=== PATIENT | male | born 1975 | race Caucasian/White ===

== ENCOUNTER 2024-02-11 20:29 | Inpatient (IN) | payer MEDICAID ==
[~2024-02-11] VITALS: Ht 182.9 cm; Wt 85.7 kg
[~2024-02-11 20:29] MED LIST: CEPH500C2 PO
[2024-02-11 20:37] VITALS: O2SAT 99
[2024-02-11 22:02] LABS: BASOPHILS % (AUTO) 0.4 % (0.0-2.0); EOSINOPHILS % (AUTO) 0.2 % (0.0-6.0); HEMATOCRIT 40 % (39-51); HEMOGLOBIN 13.1 g/dL (13.5-17.5); LYMPHOCYTES # (AUTO) 1.5 K/uL (0.8-4.8); LYMPHOCYTES % (AUTO) 11.9 % (20.0-44.0); MEAN CORPUSCULAR HEMOGLOBIN 29 PG (26.0-33.0); MEAN CORPUSCULAR HGB CONC 33 g/dl (31.0-36.0); MEAN CORPUSCULAR VOLUME 89 fL (80-96); MONOCYTES # (AUTO) 0.6 K/uL (0.1-1.30); MONOCYTES % (AUTO) 4.8 % (2.0-12.0); NEUTROPHILS # (AUTO) 10.2 K/uL (1.8-8.9); NEUTROPHILS % (AUTO) 82.7 % (43.0-81.0); PLATELET COUNT (AUTO) 298 K/uL (150-450); RED BLOOD CELL COUNT(AUTO) 4.48 MIL/uL (4.5-6.0); RED CELL DISTRIBUTION WIDTH 14.2 % (11.5-15.0); WHITE BLOOD COUNT (AUTO) 12.4 K/uL (4.3-11.0)
[2024-02-11] MEDS ORDERED: LORAZEPAM INJ 2 MG/ML VIAL ONE (22:05)
[2024-02-11 22:11] LABS: CALCIUM, SERUM 9.8 mg/dL (8.5-10.1); CARBON DIOXIDE 31 mmol/L (21-32); CHLORIDE 102 mmol/L (98-107); CREATININE 1.3 mg/dL (0.6-1.3); GLUCOSE 119 mg/dL (74-106); POTASSIUM 4.5 mmol/L (3.5-5.1); SODIUM SERUM 134 mmol/L (136-145); UREA NITROGEN, BLOOD 19 mg/dL (7-18)
[2024-02-11 22:14] LABS: INR 1.01 (0.91-1.10); PARTIAL THROMBOPLASTIN TIME 23.3 SEC (24.3-34.3); PROTHROMBIN TIME 10.4 SECS (9.2-11.1)
[2024-02-11 22:16] LABS: ALANINE AMINOTRANSFERASE 29 U/L (12-78); ALBUMIN 4.6 g/dL (3.4-5.0); ALKALINE PHOSPHATASE 73 U/L (46-116); ASPARTATE AMINOTRANSFERASE 25 U/L (15-37); BILIRUBIN,TOTAL 0.3 mg/dL (0.2-1.0); TOTAL PROTEIN, SERUM 7.8 g/dL (6.4-8.2)
[2024-02-11 22:17] LABS: BILIRUBIN,DIRECT 0.1 mg/dL (0.0-0.2)
[2024-02-11] MEDS: LORAZEPAM INJ 2 MG/ML VIAL IVP ONE (22:18)
[2024-02-11] MEDS: IV NS 0.9% 1,000 ML BAG IV ONE (22:18)
[2024-02-11 22:19] LABS: LACTIC ACID 1.2 mmol/L (0.4-2.0)
--- NOTE | 2024-02-11 22:19 | NUR ---
MOVE SHEET SUBMITTED
--- NOTE | 2024-02-11 22:51 | NUR ---
UA sent to lab
[2024-02-11 23:33] LABS: APPEARANCE,URINE CLEAR (CLEAR); BILIRUBIN,URINE NEGATIVE (NEGATIVE); BLOOD, URINE NEGATIVE Ery/uL (NEGATIVE); COLOR,URINE YELLOW (YELLOW); KETONES,URINE TRACE mg/dL (NEGATIVE); LEUKOCYTE ESTERASE ,URINE NEGATIVE (NEGATIVE); NITRITE, URINE NEGATIVE (NEGATIVE); PROTEIN,URINE 1+ mg/dl (NEGATIVE); UGLUCOSE NEGATIVE (NEGATIVE); UROBILINOGEN,URINE 0.2 EU/dL (0.2)
[2024-02-11 23:36] LABS: ADD URINE CULTURE NO; BACTERIA,URINE Rare /HPF (None Seen); SQUAMOUS EPITHELIAL CELL,UR Few /HPF (None Seen); WBC,URINE 0-2 /HPF (0-3)
--- NOTE | 2024-02-11 23:42 | NUR ---
CALLED FOR BED
[2024-02-11 23:57] LABS: AMPHETAMINE, URINE POSITIVE (NEGATIVE); BARBITURATE, URINE NEGATIVE (NEGATIVE); BENZODIAZEPINE, URINE NEGATIVE (NEGATIVE); CANNABINOID, URINE NEGATIVE (NEGATIVE); COCCAINE, URINE NEGATIVE (NEGATIVE); OPIATE, URINE NEGATIVE (NEGATIVE); PHENCYCLIDINE SCREEN,URINE NEGATIVE (NEGATIVE)
[2024-02-12] MEDS ORDERED: ZOLPIDEM TARTRATE 5 MG TABLET PO PRN
[2024-02-12] MEDS ORDERED: ACETAMINOPHEN 325 MG TABLET PO PRN
[2024-02-12] MEDS ORDERED: MAG HYDROX/AL HYDROX/SIMETH 30 ML UDC PO PRN
[2024-02-12] MEDS ORDERED: LORAZEPAM INJ 2 MG/ML VIAL IV PRN
[2024-02-12] MEDS ORDERED: ONDANSETRON HCL/PF 4 MG/2 ML VIAL IVP PRN
[2024-02-12] MEDS ORDERED: Z GUARD REMEDY 4 OZ OINT TP PRN
[2024-02-12] MEDS ORDERED: MAGNESIUM HYDROXIDE 30 ML UDC PO PRN
[2024-02-12 00:55] VITALS: BP 125/75; TEMP 98.2; O2SAT 100
--- NOTE | 2024-02-12 00:55 | NUR ---
TAPE SEWING MACHINE OPERATORPATTERNMAKER HAND NOTES REPORT RECEIVED FROM LAURYN SIMON. PATIENT WAS TRANSFERRED FROM ER VIA GURNEY WITH NO SIGNS OF DISTRESS. PATIENT IS A/O X 1-2, LETHARGIC. ON 3L OXYGEN, SATURATING @ 99%. IV ACCESS RIGHT FOREARM #18G AND LEFT HAND #20G BOTH ON SALINE LOCK, INTACT, PATENT AND FLUSHING WELL. ORIENTED PATIENJT ON ROOM SET UP AND EDUCATED PATIENT ON THE USE OF CALL LIGHT. ALL BELONGINGS CHECKED AND SIGNED BY SHAYE GUERRA. WILL CARRY OUT ACTIVE MD ORDERS. SAFETY MEASURES IN PLACE WITH BED IN LOWEST LOCKED POSITION, SIDE RAILS UP X 2, CALL LIGHT AND TRAY WITHIN EASY REACH. PLAN OF CARE ONGOING.
[2024-02-12] MEDS: IV NS 0.9% 1,000 ML IV PRN (00:57)
--- NOTE | 2024-02-12 02:40 | NUR ---
RN KEVIN- PATIENT REMOVED LEFT HAND #20G IV ACCESS. PATIENT IS CONFUSED, FORGETFUL AND DIAPORETIC. PLAN OF CARE ONGOING.
[2024-02-12 04:28] VITALS: BP 134/89; TEMP 98.1; O2SAT 90
--- NOTE | 2024-02-12 05:00 | NUR ---
RN NOTES- PATIENT REMOVED HIS RIGHT ANTECUBITAL #18G IV ACCESS. PATIENT REFUSED IV FLUID. PATIENT VERBALIZED THAT HE IS BETTER AND DOESN'T NEED ONE AND THAT HE HAS A RIGHT TO REFUSE. INFORMED VIDEO MACHINES MECHANIC CASTANEDA. PLAN OF CARE ONGOING.
--- NOTE | 2024-02-12 05:07 | NUR ---
RT NOTE PATIENT REFUSING EKG. PRIMARY NURSE IS AWARE.
[2024-02-12] MEDS: OLANZAPINE 10 MG VIAL IM PRN (05:31)
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
--- NOTE | 2024-02-12 05:55 | NUR ---
RN NOTES-ZYPREZA 10MG PRN GIVEN IM FOR AGITATION. DENIES ANY ACUTE RESPIRATORY DISTRESS AT THIS TIME. PLAN OF CARE ONGOING.
--- NOTE | 2024-02-12 06:39 | NUR ---
RN NOTES- PATIENT REFUSED EXTERNAL FINANCIAL ANALYSIS MANAGER. RETURNED BACK TO THE WILL CALL CLERK. PLAN OF CARE ONGOING.
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
[2024-02-12] MEDS ORDERED: PANTOPRAZOLE 40 MG TABLET.DR PO SCH (07:30)
--- NOTE | 2024-02-12 08:09 | NUR ---
RN CLOSING NOTES PATIENT REFUSED TO RETURN TO THE UNIT. PER TRUDY SHELDON (SECURITY) CALLED AND INFORMED THAT THE PATIENT LEFT AMA WITHOUT SIGNING THE PAPER. PATIENT IS AGITATED AND YELLING AT PEOPLE AND THROWING CIGARETTE. NURSE MAINTENANCE WORKER AWARE AND GAVE THE PATIENT BUS PASS. PATIENT DOES NOT HAVE IV ACCESS WHICH HE REFUSED EARLIER. CHARGE NURSE IS AWARE.
== END 2024-02-12 07:00 | disposition left against medical advice (07) | DRG 812 ==
LOC: ER 20:30 → TELE 23:52
PROVIDERS: ADMIT Nurse Practitioner Family; ATTEND Internal Medicine
DX: T43.651A Poisoning by methamphetamines accidental (unintentional), initial encounter (principal); G92.8 Other toxic encephalopathy; E87.1 Hypo-osmolality and hyponatremia; E86.0 Dehydration; I10 Essential (primary) hypertension; E66.3 Overweight; E86.1 Hypovolemia; R56.9 Unspecified convulsions; F19.10 Other psychoactive substance abuse, uncomplicated; R73.9 Hyperglycemia, unspecified; Z68.25 Body mass index [BMI] 25.0-25.9, adult; Y92.89 Other specified places as the place of occurrence of the external cause; Z53.29 Procedure and treatment not carried out because of patient's decision for other reasons
CPT/HCPCS: 36415; 71045-TC; 80048-TC; 80076-TC; 81001; 83605-TC; 84484-TC; 85025-TC; 85730-TC; 87040-TC; 87086-TC; A4223; G0378; G0480; J2060; J3490; J7030

== ENCOUNTER 2024-02-14 06:28 | Emergency (ER) | payer MEDICAID ==
[~2024-02-14] VITALS: Ht 177.8 cm; Wt 90.7 kg
[2024-02-14 07:17] VITALS: BP 132/79; TEMP 98.8; O2SAT 99
[2024-02-14] MEDS ORDERED: ACETAMINOPHEN ES 500 MG TABLET ONE (09:14)
[2024-02-14] MEDS: ACETAMINOPHEN ES 500 MG TABLET PO ONE (09:15)
== END 2024-02-14 09:46 | disposition home or self-care (01) ==
LOC: ER 06:30
DX: R52 Pain, unspecified (principal); I10 Essential (primary) hypertension; F31.9 Bipolar disorder, unspecified; F17.210 Nicotine dependence, cigarettes, uncomplicated